=== PATIENT | male | born 1965 | race Two or more races ===

== ENCOUNTER 2020-07-27 00:31 | Emergency (ER) | payer OTHER ==
[~2020-07-27] VITALS: Ht 175.3 cm; Wt 61.2 kg
[2020-07-27 00:33] VITALS: BP 126/80
--- NOTE | 2020-07-27 01:41 | Emergency Room Report ---
History of Present Illness General Chief Complaint: Overdose Present Illness HPI 54-year-old male here with drug overdose. The patient says that he snorted what he thought was methamphetamine but said "it tasted like fentanyl." Bystanders called paramedics when the patient was found unresponsive on the ground. When paramedics arrived they establish an IV and gave 4 mg of Narcan IV with immediate resolution of the patient's altered mental status. Patient denies headaches, vision changes, head injury, neck pain, neck stiffness, fevers, chills, chest pain, palpitations, shortness of breath, cough, back pain, abdominal pain, nausea, vomiting, diarrhea, dysuria. Allergies: Coded Allergies: PENICILLINS (Verified Allergy, Unknown, 07/27/20) COVID-19 Screening Contact w/high risk pt: No Experienced COVID-19 symptoms?: No COVID-19 Testing performed [employer]ICAL [employer]ANCE [employer]: No Review of Systems All Other Systems: negative except mentioned in HPI Physical Exam Vital Signs Date Time Temp Pulse Resp B/P (MAP) Pulse Ox O2 Delivery O2 Flow Rate FiO2 07/27/20 00:27 98.1 94 20 126/80 (95) 99 Room Air 07/27/20 00:33 99 Sp02 EP Interpretation: reviewed, normal General Appearance: no apparent distress, alert, GCS 15, non-toxic Head: normocephalic, atraumatic Eyes: bilateral eye normal inspection, bilateral eye PERRL ENT: hearing grossly normal, normal pharynx, no angioedema, normal voice Neck: full range of motion, supple/symm/no masses Respiratory: chest non-tender, lungs clear, normal breath sounds, speaking full sentences Cardiovascular #1: regular rate, rhythm, no edema Cardiovascular #2: 2+ carotid (R), 2+ carotid (L), 2+ radial (R), 2+ radial (L), 2+ dorsalis pedis (R), 2+ dorsalis pedis (L) Gastrointestinal: normal bowel sounds, non tender, soft, non-distended, no guarding, no rebound Rectal: deferred Genitourinary: normal inspection, no CVA tenderness Musculoskeletal: back normal, normal range of motion, calf tenderness, gait/station normal, non-tender Neurologic: alert, motor strength/tone normal, oriented x3, sensory intact, responsive, speech normal Psychiatric: judgement/insight normal, memory normal, mood/affect normal, no suicidal/homicidal ideation Lymphatic: no adenopathy Medical Decision Making Diagnostic Impression: Primary Impression: Drug overdose ER Course 54-year-old male here with altered mental status after overdosing on an unknown drug. Patient says "it tasted like fentanyl" and the patient required IV Narcan and had immediately with resolution of his altered mental status. He was watched for over 2 hours after he was given the Narcan and remained hemodynamically stable and neurovascularly intact and completely awake and alert. No rebound altered mental status and no hypoxia. Patient normal vital signs throughout the stay in the emergency department. Normal [id number] blood glucose. Chest x-ray was also unremarkable. The patient was given a prescription for Narcan and information to follow-up with a primary care provider. He was also told to refrain from any drugs or alcohol. Discharged in stable condition. Chest x-ray: No infiltrate/effusion. Mediastinum within normal limits Last Vital Signs Date Time Temp Pulse Resp B/P (MAP) Pulse Ox O2 Delivery O2 Flow Rate FiO2 07/27/20 00:33 94 20 Room Air 99 07/27/20 00:33 98.1 126/80 99 Disposition: HOME, SELF-CARE Scripts Naloxone HCl (Narcan) 4 Mg [place] 4 MG NS ONCE PRN for Shortness of Breath for 1 Day, #1 SPRAY Prov: Donovan Davis M.D. 07/27/20 Referrals: [facility],REFERRING (PCP) Donovan Davis M.D. Jul 27, 2020 01:41
[2020-07-27] MEDS ORDERED: NARCAN4 MG NS (02:26)
[2020-07-27 02:38] VITALS: BP 122/79
--- NOTE | 2020-07-27 16:29 | Diagnostic Imaging Report ---
Indication: Chest pain Technique: One view of the chest Comparison: none Findings: Lungs and pleural spaces are clear. Heart size is normal. Impression: No acute process
== END 2020-07-27 02:38 | disposition home or self-care (01) ==
LOC: EDBD 00:31 → EMR 01:03
DX: T50.901A Poisoning by unspecified drugs, medicaments and biological substances, accidental (unintentional), initial encounter (principal); Y92.9 Unspecified place or not applicable; Z88.0 Allergy status to penicillin
CPT/HCPCS: 71045; Z7502; 99283